=== PATIENT | male | born 1995 | race Caucasian/White ===

== ENCOUNTER 2020-02-03 19:06 | Emergency (ER) | payer SELFPAY ==
[~2020-02-03] VITALS: Ht 172.7 cm; Wt 89.0 kg
[2020-02-03 19:20] VITALS: BP 136/79
[2020-02-03] MEDS ORDERED: SULF1TAB24 PO (19:52)
[2020-02-03] MEDS ORDERED: CEPH-264 PO (19:52)
--- NOTE | 2020-02-03 19:53 | PHYS DOC ---
General Adult EDM: Chief Complaint: ABSCESS HPI: HPI: 24-year-old male who denies any significant past medical history presents to the ED with complaints of genital infection for the past 5 days. Patient states he's prone for folliculitis so he has not shaved his pubic hair in awhile. States he popped the lesion a few days ago and pus came out, upset because lesion has not gone away. No known history of MRSA, diabetes, chronic steroid use or immunocompromised state. ROS: Denies associated fever, chills, sore throat, dyspnea, cough, chest pain, dysuria, hematuria, flank pain, pain in the testes and penis, ulcers, spreading rash, or urethral discharge. Allergies: Allergies: Allergies Coded Allergies Type Severity Reaction Last Updated Verified No Known Drug Allergies 02/03/20 No Physical Exam: PE: Constitutional: Well developed, well nourished, no acute distress, non-toxic appearance. [] HENT: Normocephalic, atraumatic, bilateral external ears normal, oropharynx moist, no oral exudates, nose normal. [] Eyes: PERRLA, EOMI, conjunctiva normal, no discharge. [] Neck: Normal range of motion, no tenderness, supple, no stridor. [] Cardiovascular:Heart rate regular rhythm, no murmur [] Lungs & Thorax: Bilateral breath sounds clear to auscultation [] Abdomen: Bowel sounds normal, soft, no tenderness, no masses, no pulsatile masses. [] Skin: Warm, dry, no erythema, no rash. [] Back: No tenderness, no CVA tenderness. [] Extremities: No tenderness, no cyanosis, no clubbing, ROM intact, no edema. [] Neurologic: Alert and oriented X 3, normal motor function, normal sensory function, no focal deficits noted. [] Psychologic: Affect normal, judgement normal, mood normal. 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 Will DC home with Bactrim and Keflex, wound check in 48 hours or sooner if patient should develop any fevers, worsening rash or pain. Life-threatening processes were considered Low suspicion given patient's history and physical exam (necrotizing fasciitis, MRSA, sepsis, Horace's gangrene, prostatitis, etc). Wound care instructions given. Strict ed return precautions were given. All patient's questions were answered and he was stable at time of discharge. Course & Med Decision Making: Course & Med Decision Making Pertinent Labs and Imaging studies reviewed. (See chart for details) [] Dragon Disclaimer: Dragon Disclaimer: This electronic medical record was generated, in whole or in part, using a voice recognition dictation system. Departure Departure: Impression: Primary Impression: Abscess Disposition: 01 HOME/RESIDENCE PRIOR TO ADM Condition: STABLE Referrals: PCP,NO (PCP) Patient Instructions: Abscess Scripts Sulfamethoxazole/Trimethoprim (BACTRIM DS TABLET) 1 Each Tablet 1 TAB PO BID for abscess for 10 Days, #20 TAB 0 Refills Prov: LETTY MCGREGOR DO 02/03/20 Cephalexin (KEFLEX) 500 Mg Capsule 1 CAP PO BID for abscess for 10 Days, #20 CAP 0 Refills Prov: LETTY MCGREGOR DO 02/03/20 Justification of Admission: Justification of Admission: Justification of Admission Dx: N/A LETTY MCGREGOR DO Feb 03, 2020 19:52
== END 2020-02-03 20:05 | disposition home or self-care (01) ==
LOC: ER 19:06
DX: L02.215 Cutaneous abscess of perineum (principal)
CPT/HCPCS: 99283